=== PATIENT | female | born 1940 | race Caucasian/White ===

== ENCOUNTER → 2019-03-07 13:38 | Outpatient (CLI) | payer MEDICARE, OTHER, SELFPAY ==
--- NOTE | 2019-03-07 | DI.RAD.S_ITS ---
PROCEDURE: XR KNEE LT 3V INDICATIONS: LEFT KNEE PAIN TECHNIQUE: 3 views of the knee were acquired. COMPARISON: None. FINDINGS: Bones: No fractures or dislocations. No suspicious bony lesions. There is a mild to moderate degree of degenerative knee joint space narrowing, best seen at the medial compartment and present to a mild degree at each facet of the patellofemoral joint. Soft tissues: No joint effusion. No suspicious soft tissue calcifications. IMPRESSION: No acute trauma found. Mild degenerative knee joint osteoarthritis as discussed. Dictated by: Koko Montez M.D. on 03/07/2019 at 14:26 Approved by: Koko Montez M.D. on 03/07/2019 at 14:26
== END ==
PROVIDERS: Family Provider Internal Medicine; PCP Internal Medicine; Visit Provider Family Medicine
DX: M17.12 Unilateral primary osteoarthritis, left knee (principal)
CPT/HCPCS: 73562

== ENCOUNTER → 2019-03-30 17:03 | Outpatient (CLI) | payer MEDICARE, OTHER, SELFPAY ==
--- NOTE | 2019-03-30 17:07 | DI.MRI.S_ITS ---
PROCEDURE: MR KNEE LT WO CON INDICATIONS: PAIN IN LEFT KNEE TECHNIQUE: Noncontrast sagittal PD fast spin echo and T2 fast spin echo with fat saturation, sagittal 3-D FLASH with fat saturation; coronal T1 spin echo and PD fast spin echo with fat saturation, and axial PD fast spin echo with fat saturation through the knee. COMPARISON: [facility], MR, KNEE WITHOUT CONTRAST, 06/02/2015, 13:14. FINDINGS: Image quality: Excellent. Menisci: Complex oblique tear involving posterior horn of medial meniscus is seen extending to inferior articulating surface. Peripheral displacement of medial meniscus is also noted bony medial collateral ligament. There is also peripheral displacement of lateral meniscus with suggestion of a complex tear involving anterior horn of lateral meniscus extending to both superior and inferior articulating surfaces. The meniscal root ligaments appear intact. Cruciate ligaments: There is sprain/intrasubstance partial thickness tear involving the proximal to midportion of the anterior cruciate ligament. No full-thickness ACL rupture. Posterior cruciate ligament is intact. Medial structures: The medial collateral ligament appears intact. The posterior oblique ligament, semimembranosus tendon insertions, oblique popliteal ligament, and meniscocapsular junction appear intact. Visualized portions of the pes anserinus tendons appear normal. No abnormal bursal fluid. Lateral structures: The lateral collateral ligament, long and short heads of the biceps femoris tendon appear intact. The popliteus tendon appears normal; the popliteofibular ligament appears intact. The posterosuperior and anteroinferior popliteomeniscal fascicles appear intact. The arcuate and fabellofibular ligaments appear intact, on either side of the lateral inferior geniculate artery. Iliotibial band appears normal. Anterior structures: The quadriceps and patellar tendons appear intact. Patellar alignment is normal. No femoral trochlear dysplasia or ventral trochlear prominence. No edema in the infrapatellar fat pad. Bones and cartilage: There is moderate tricompartmental osteoarthritis with joint space narrowing, subchondral sclerosis and marginal osteophyte formation. Marrow edema involving weight-bearing portion of lateral femoral condyle is seen with no discrete fracture line likely represent bony contusion. 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 Chondromalacia involving medial and lateral femoral tibial compartments also noted. Joint space: There is small to moderate amount of joint effusion. No gross loose body. No Archer's cyst. Normal appearing synovial plicae are incidentally noted. IMPRESSION: 1. Complex tear involving posterior horn of medial meniscus extending to inferior articulating surface. No flexor evolving anterior horn of lateral meniscus extending to both superior and inferior articulating surfaces. 2. Sprain/low to moderate grade intrasubstance partial thickness involving proximal to mid anterior cruciate ligament. No full-thickness ACL rupture. PCL is intact. 3. Bony contusion involving weight-bearing portion of lateral femoral condyle. No definite fracture or dislocation. Moderate tricompartmental osteoarthritis and chondromalacia. Moderate amount of joint effusion, no gross loose body. Dictated by: Harley Aguilar M.D. on 04/02/2019 at 8:54 Approved by: Harley Aguilar M.D. on 04/02/2019 at 9:03
== END ==
PROVIDERS: Family Provider Internal Medicine; PCP Internal Medicine; Visit Provider Family Medicine
DX: M25.562 Pain in left knee (principal); S83.232A Complex tear of medial meniscus, current injury, left knee, initial encounter; S83.282A Other tear of lateral meniscus, current injury, left knee, initial encounter; S83.512A Sprain of anterior cruciate ligament of left knee, initial encounter; M17.12 Unilateral primary osteoarthritis, left knee; M94.262 Chondromalacia, left knee; M25.462 Effusion, left knee
CPT/HCPCS: 73721

== ENCOUNTER → 2019-05-23 09:47 | Outpatient (CLI) | payer MEDICARE, OTHER, SELFPAY | PROVIDERS: Family Provider Internal Medicine; PCP Internal Medicine; Visit Provider Orthopaedic Surgery | DX: S83.282A Other tear of lateral meniscus, current injury, left knee, initial encounter (principal) | CPT/HCPCS: 93005; 93010 ==

== ENCOUNTER → 2019-08-20 10:37 | Outpatient (CLI) | payer MEDICARE, OTHER, SELFPAY ==
--- NOTE | 2019-08-20 | DI.RAD.S_ITS ---
PROCEDURE: XR WRIST RT MIN 3V INDICATIONS: ARTHRITIS OF R WRIST TECHNIQUE: 3 views of the wrist were acquired. COMPARISON: None. FINDINGS: Bones: Osteoarthritic changes along radial aspect of right wrist are seen more prominent at first CMC joint. There is nonvisualization of the trapezium, suggestive of prior surgical resection. No fractures or dislocations. No suspicious bony lesions. Scaphoid view: Scaphoid is grossly intact. Soft tissues: No suspicious soft tissue calcifications. 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 Suggestion of prior resection of trapezium. No acute fracture or dislocation. Dictated by: Harley Aguilar M.D. on 08/20/2019 at 12:33 Approved by: Harley Aguilar M.D. on 08/20/2019 at 12:37
== END ==
PROVIDERS: PCP Internal Medicine; Visit Provider Internal Medicine
DX: M19.031 Primary osteoarthritis, right wrist (principal); M18.11 Unilateral primary osteoarthritis of first carpometacarpal joint, right hand
CPT/HCPCS: 73110

== ENCOUNTER → 2019-10-30 13:25 | Outpatient (CLI) | payer MEDICARE, OTHER, SELFPAY ==
--- NOTE | 2019-10-30 | DI.RAD.S_ITS ---
PROCEDURE: XR CHEST 2V INDICATIONS: Bronchitis TECHNIQUE: 2 views of the chest were acquired. COMPARISON: None. FINDINGS: Surgical changes and devices: None. Lungs and pleura: Lungs are clear. No pleural effusions or pneumothorax. Mediastinum: Mediastinal contours are normal. Heart size is normal. Bones and chest wall: No suspicious bony abnormalities. Soft tissues appear unremarkable. IMPRESSION: No acute cardiopulmonary abnormalities or focal airspace disease. Dictated by: Orestes Almaraz M.D. on 10/30/2019 at 17:10 Approved by: Orestes Almaraz M.D. on 10/30/2019 at 17:10
== END ==
PROVIDERS: PCP Internal Medicine; Visit Provider Internal Medicine
DX: J20.9 Acute bronchitis, unspecified (principal)
CPT/HCPCS: 71046

== ENCOUNTER → 2020-06-26 09:01 | Outpatient (CLI) | payer MEDICARE, OTHER, SELFPAY ==
--- NOTE | 2020-06-26 | DI.RAD.S_ITS ---
PROCEDURE: FL BARIUM SWALLOW INDICATIONS: Gastro-esophageal reflux disease without esophagit COMPARISON: None. FINDINGS: Function: There is mildly decreased esophageal peristalsis. Mild gastroesophageal reflux to the level of the lower 3rd of the esophagus. There is normal transit of a calibrated barium tablet through the esophagus into the stomach. Morphology: Air-contrast images demonstrate normal mucosal morphology. Single contrast views show no esophageal strictures, extrinsic mass effects, or diverticula. Limited images of the stomach demonstrate normal appearance. IMPRESSION: Mild esophageal dysmotility. Spontaneous gastroesophageal reflux Dictated by: Sam Oliveira M.D. on 06/26/2020 at 11:07 Approved by: Sam Oliveira M.D. on 06/26/2020 at 11:09
== END ==
PROVIDERS: PCP Internal Medicine; Referring Provider Internal Medicine; Visit Provider Internal Medicine
DX: K21.9 Gastro-esophageal reflux disease without esophagitis (principal); K22.4 Dyskinesia of esophagus
CPT/HCPCS: 74220

== ENCOUNTER → 2020-07-31 09:57 | Outpatient (CLI) | payer MEDICARE, OTHER, SELFPAY ==
--- NOTE | 2020-07-31 10:30 | DI.MG.S_ITS ---
Patient Name: NICHOLAS TABOR date: 1940 Sex: F Attending Physician: Nicolle Indications: Date: 07/31/2020 10:13 At the request of: LONNIE GALLOWAY Procedure: MM screening mammo BI BILATERAL DIGITAL SCREENING MAMMOGRAM 3D/2D WITH CAD: 07/31/2020 CLINICAL: Routine screening. Comparison is made to exams dated: 09/08/2018 mammogram, 10/25/2016 mammogram, and 06/28/2014 mammogram - [facility]. There are scattered fibroglandular elements in both breasts. Current study was also evaluated with a Computer Aided Detection (CAD) system. There are benign calcifications in both breasts. No significant masses, calcifications, or other findings are seen in either breast. There has been no significant interval change. IMPRESSION: BENIGN There is no mammographic evidence of malignancy. A 1 year screening mammogram is recommended. This exam was interpreted at Station ID: [id number]. NOTE: For mammograms, a report in lay terms will be sent to the patient. Approximately 15% of breast malignancies will not be visualized mammographically. In the management of a palpable breast mass, a negative mammogram must not discourage biopsy of a clinically suspicious lesion. Electronically Signed By: Orestes pérez/girma:07/31/2020 10:52:44 letter sent: Normal Exam ACR BI-RADS Category 2: Benign Finding(s) [id number]
== END ==
PROVIDERS: PCP Internal Medicine; Referring Provider Internal Medicine; Visit Provider Internal Medicine
DX: Z12.31 Encounter for screening mammogram for malignant neoplasm of breast (principal)
CPT/HCPCS: 77063; 77067

== ENCOUNTER → 2020-09-08 13:45 | Outpatient (CLI) | payer MEDICARE, OTHER, SELFPAY | PROVIDERS: PCP Internal Medicine; Referring Provider Internal Medicine; Visit Provider Internal Medicine | DX: M85.852 Other specified disorders of bone density and structure, left thigh (principal); Z78.0 Asymptomatic menopausal state; Z90.722 Acquired absence of ovaries, bilateral; Z82.62 Family history of osteoporosis | CPT/HCPCS: 77080 ==

== ENCOUNTER → 2020-09-16 12:59 | Outpatient (CLI) | payer MEDICARE, OTHER, SELFPAY ==
--- NOTE | 2020-09-16 | DI.RAD.S_ITS ---
PROCEDURE: XR FOOT LT MIN 3V INDICATIONS: Pain in left ankle and joints of left foot TECHNIQUE: 3 views of the foot were acquired. COMPARISON: None. FINDINGS: Bones: No fractures or dislocations. No suspicious bony lesions. Soft tissues: No tibiotalar joint effusion. Achilles tendon appears normal. IMPRESSION: No acute disease found. Please note that the ankle joint area is relatively poorly visualized by the foot plain film technique utilized. If dedicated ankle plain films are desired they should be ordered independently. Dictated by: Koko Montez M.D. on 09/16/2020 at 15:52 Approved by: Koko Montez M.D. on 09/16/2020 at 15:53
== END ==
PROVIDERS: PCP Internal Medicine; Referring Provider Internal Medicine; Visit Provider Internal Medicine
DX: M25.572 Pain in left ankle and joints of left foot (principal)
CPT/HCPCS: 73630

== ENCOUNTER → 2021-12-10 10:16 | Outpatient (CLI) | payer MEDICARE, OTHER, SELFPAY ==
--- NOTE | 2021-12-10 | DI.RAD.S_ITS ---
PROCEDURE: XR CHEST 2V INDICATIONS: Sprain of ribs, subsequent encounter TECHNIQUE: 2 views of the chest were acquired. COMPARISON: [facility], CR, XR CHEST 2V, 10/30/2019, 13:50. FINDINGS: Surgical changes and devices: None. Lungs and pleura: Lungs are clear. No pleural effusions or pneumothorax. Mediastinum: Mediastinal contours are normal. Heart size is normal. Bones and chest wall: No suspicious bony abnormalities. Soft tissues appear unremarkable. IMPRESSION: No evidence acute pulmonary process. Dictated by: Michael France M.D. on 12/10/2021 at 11:07 Approved by: Michael France M.D. on 12/10/2021 at 11:08
== END ==
PROVIDERS: PCP Internal Medicine; Referring Provider Internal Medicine; Visit Provider Internal Medicine
DX: S23.41XD Sprain of ribs, subsequent encounter (principal)
CPT/HCPCS: 71046

== ENCOUNTER → 2022-02-23 13:56 | Outpatient (CLI) | payer MEDICARE, OTHER, SELFPAY ==
--- NOTE | 2022-02-23 | DI.CT.S_ITS ---
PROCEDURE: CT CHEST WO CON INDICATIONS: Left lower rib cage pain, marked with BB. TECHNIQUE: Noncontrast 5 mm thick sections acquired from the pulmonary apices to the posterior costophrenic angles. 1 mm lung window, 5 mm thick coronal and sagittal and 7 mm axial MIP reformats were then acquired. For radiation dose reduction, the following was used: automated exposure control, adjustment of mA and/or kV according to patient size. COMPARISON: None. FINDINGS: Image quality: Excellent. Lungs and pleura: No acute air space opacities. No pleural effusions or pneumothorax. Central and peripheral airways are patent and normal in caliber. Mediastinum: Heart size is normal. No pericardial effusion. No mediastinal adenopathy by size criteria. Thoracic aorta and central pulmonary arteries are normal in size. Esophagus is normal in caliber. No hiatal hernia. Rounded 7 mm calcification associated with the left lobe of the thyroid posteriorly Bones and chest wall: No suspicious bony lesions. No vertebral body compression fractures. No axillary or supraclavicular adenopathy by size criteria. Thyroid gland unremarkable . BB marker corresponds with the left 6th and 7th costochondral junction. No lytic or blastic lesion present. No fracture. Abdomen: Visualized upper abdominal solid organs and bowel loops appear normal in the absence of contrast. IMPRESSION: Patient's area of pain corresponds with the left 6th and 7th costochondral junction. No evidence of fracture or lytic lesion. Approved by: Irving Powers M.D. on 02/23/2022 at 16:47
== END ==
PROVIDERS: PCP Internal Medicine; Referring Provider Internal Medicine; Visit Provider Internal Medicine
DX: S23.41XS Sprain of ribs, sequela (principal)
CPT/HCPCS: 71250

== ENCOUNTER → 2022-12-22 10:27 | Outpatient (CLI) | payer MEDICARE, OTHER, SELFPAY ==
--- NOTE | 2022-12-22 | DI.MRI.S_ITS ---
PROCEDURE: MR LUMBAR SPINE WO/W CON INDICATIONS: Low back pain, unspecified TECHNIQUE: Noncontrast sagittal T1 spin echo and T2 fast echo, sagittal STIR, and T2 fast spin echo through the lumbar spine. In cases with scoliosis, additional coronal T2 fast spin echo may be performed. COMPARISON: [facility], , L-SPINE WITHOUT CONTRAST, 04/14/2016, 8:11. FINDINGS: Image quality: Excellent. Alignment and Curvature: Mild levoconvex scoliotic curvature is noted. Minimal retrolisthesis is seen at T12-L1. Minimal anterolisthesis is seen at the L3-L4 level. Bone Marrow: Marrow is of normal overall signal. No acute vertebral body compression fractures. Mild endplate enhancement can be seen at T11 and T12, which is attributed to reactive enhancement with the underlying bone marrow edema. A Spinal Cord: Conus medullaris terminates at the L1 level. Visualized cord demonstrates normal signal and size. Paraspinous Soft Tissues: No paravertebral masses. T11-T12: Moderate loss of disc height and disc signal can be seen anteriorly. Reactive marrow endplate changes are seen which are hypointense on T1-weighted imaging and hyperintense on T2 weighted imaging, which is most consistent with edema (Modic type I changes). No significant neural foraminal or central canal narrowing can be seen. The degree of endplate edema has progressed compared to 2016. T12-L1: Moderate loss of disc height is seen. Loss of disc signal is seen. Reactive marrow endplate changes are seen which are hypointense on T1-weighted imaging and hyperintense on T2 weighted imaging, which is most consistent with edema (Modic type I changes). Moderate generalized disc bulge is seen. There is moderate right-sided and no left-sided neural foraminal narrowing. No central canal narrowing is seen. The degree of right-sided neural foraminal narrowing is progressed compared to 2016. The degree of endplate edema is also progressed compared to prior. L1-L2: The disc height is well-preserved. Loss of disc signal is seen at this level. No neural foraminal narrowing or central canal narrowing can be seen. L2-L3: The disc height is well-preserved. Loss of disc signal is seen at this level. Mild to moderate disc bulge is seen. There is a superimposed central disc protrusion. Mild to moderate facet hypertrophy is seen. Associated hypertrophy of the ligamentum flavum can be seen. Moderate bilateral neural foraminal narrowing is seen. Moderate central canal narrowing is seen. When comparison is made with the prior images, these findings are similar. L3-L4: Mild loss of disc height is seen. Loss of disc signal is seen. Moderate disc bulge is seen, which is slightly eccentric to the right. At least moderate facet hypertrophy is seen. There is [id number] left-sided and moderate right-sided neural foraminal narrowing seen. Moderate central canal narrowing is seen. When comparison is made with the prior images, these findings are similar. L4-L5: The disc height is well-preserved. Loss of disc signal is seen at this level. Moderate generalized disc bulge is seen. Mild to moderate facet hypertrophy can be seen. Moderate bilateral neural foraminal narrowing is seen, left worse than right. No significant central canal narrowing is seen. There is slight progression at this level compared to 2016. L5-S1: The disc height is well-preserved. Loss of disc signal is seen at this level. No significant disc bulge is seen. Moderate facet joint hypertrophy is seen. There is [id number] left-sided and mild right-sided neural foraminal narrowing. The central canal is widely patent. When comparison is made with the prior images, these findings are similar. IMPRESSION: Multiple levels of lumbar spine degenerative change can be seen, which are mildly progressed at several levels compared to 2016. Dictated by: Shay Whelan M.D. on 12/22/2022 at 11:55 Approved by: Shay Whelan M.D. on 12/22/2022 at 12:00
== END ==
PROVIDERS: PCP Internal Medicine; Referring Provider Internal Medicine; Visit Provider Internal Medicine
DX: M47.816 Spondylosis without myelopathy or radiculopathy, lumbar region (principal); M47.817 Spondylosis without myelopathy or radiculopathy, lumbosacral region; M54.50 Low back pain, unspecified
CPT/HCPCS: 72158; A9579

== ENCOUNTER → 2023-02-07 10:18 | Outpatient (CLI) | payer MEDICARE, OTHER, SELFPAY ==
--- NOTE | 2023-02-07 10:20 | DI.RAD.S_ITS ---
PROCEDURE: XR LUMBAR SPINE MIN 4V INDICATIONS: BACK PAIN TECHNIQUE: 5 views of the lumbar spine were acquired, including bilateral oblique views. COMPARISON: [facility], , L-SPINE 2-3 VIEWS, 01/31/2017, 11:39. [facility], CR, L-SPINE 2-3 VIEWS, 11/03/2015, 9:34. FINDINGS: Bones: 5 nonrib-bearing vertebrae are present. Convex left scoliosis, Cody angle of 17 degrees. No listhesis. Facet arthrosis at L5-S1. Mild disc height loss at all levels. Soft tissues: Overlying bowel gas pattern is normal. No suspicious soft tissue calcifications. Oblique images: No pars defects. IMPRESSION: 1. Mild disc height loss at all levels. 2. Mild facet arthrosis at L5-S1. 3. Convex left scoliosis. 1. Dictated by: Vish Juares M.D. on 02/07/2023 at 10:44 Approved by: Vish Juares M.D. on 02/07/2023 at 10:45
== END ==
PROVIDERS: PCP Internal Medicine; Referring Provider Physical Medicine & Rehabilitation; Visit Provider Physical Medicine & Rehabilitation
DX: M47.817 Spondylosis without myelopathy or radiculopathy, lumbosacral region (principal); M47.816 Spondylosis without myelopathy or radiculopathy, lumbar region; M48.061 Spinal stenosis, lumbar region without neurogenic claudication; M41.9 Scoliosis, unspecified; M54.9 Dorsalgia, unspecified
CPT/HCPCS: 72110; 99214

== ENCOUNTER 2023-03-10 08:06 | Outpatient (CLI) | payer MEDICARE, OTHER, SELFPAY ==
[2023-03-10] VITALS (9 sets, daily range): BP systolic 89–165; BP diastolic 54–76; PULSE 62–76; RESP 13–24; TEMP 36.3; O2SAT 31–100
--- NOTE | 2023-03-10 08:08 | DI.RAD.S_ITS ---
PROCEDURE: PAIN L/SI FACET INJ/BLK 1STL INDICATIONS: SPONDYLOSIS COMPARISON: [facility], CR, XR LUMBAR SPINE MIN 4V, 02/07/2023, 10:17. FINDINGS: Fluoroscopic spot filming was performed to verify placement of spinal needles on the left at the L4-L5 and L5-S1 levels, as labeled on the films. Appropriate location of the needle tips was confirmed by injection of iodinated contrast. IMPRESSION: Intraprocedural examination demonstrating appropriate positions of the needles. Dictated by: Shay Whelan M.D. on 03/10/2023 at 11:05 Approved by: Shay Whelan M.D. on 03/10/2023 at 11:05
[2023-03-10] MEDS: MIDAZOLAM 2 MG/2 ML VIAL IV (09:11)
[2023-03-10] MEDS: IOPAMIDOL 15 ML VIAL 3 ML INJ (09:12)
[2023-03-10] MEDS: BUPIVACAINE 0.5% (PF) 30 ML VIAL INJ (09:12)
[2023-03-10] MEDS: BETAMETHASONE 30 MG/5 ML MDV 12 MG INJ (09:12)
--- NOTE | 2023-03-10 09:25 | P.PCN_ITS ---
Date/Time/Diagnoses Date of procedure: 03/10/23 Time of procedure: 09:25 Pre-procedure diagnosis: 1. FACET ARTHROPATHY, 2. AXIAL LBP, 3. MULTILEVEL DDD Post-procedure diagnosis: same Procedure Notes Procedure: 1. FLUOROSCOPICALLY GUIDED CONTRAST CONTROLLED FACET JOINT INJECTIONS LEFT L4/5, L5/S1 Indications: Cheryl is referred by Dr. Valverde for treatment of Axial LBP Physician: Paul Rao Total Fluoroscopy time (seconds): 5 Total sedation minutes: 9 Complications: none Procedure in detail & Post-procedure care: FINDINGS Multilevel Facet Arthropathy with Clinically significant axial LBP DESCRIPTION OF PROCEDURE Fluoroscopically guided, contrast-controlled left L4/5, L5/S1 facet joint injections. Following review of allergy and review of potential side effects and complications, including, but not necessarily limited to, infection, allergic reaction, local tissue breakdown, stroke, temporary or permanent nerve injury, paralysis, and possible , the patient indicated that the patient understood and agreed to proceed. An informed consent document was signed by the patient, witnessed by a nurse, and placed in the patient's chart. Additionally, other treatment options including medications, modalities, and physical therapy were reviewed with the patient. After review of previous anaesthesic history and IV conscious sedation the patient was deemed safe to proceed with today?s procedure with IV conscious sedation as ASA class II designation. Safety time-out was performed to confirm patient ID, procedure to be performed and site of procedure. IV sedation was accomplished with a combination of 2mg of Versed was administered by the RN after DO order, titrated to patient comfort during the course of the procedure while the patient remained responsive to all verbal commands. In the prone position, following sterile prep and drape of the lumbar region, the posterior aspect of the left L4/5, L5/S1 facet joints were identified fluoroscopically. The skin was anesthetized via a 25-gauge 1.5-inch needle with 1% lidocaine solution into the corresponding facet joints. At this point, a 22- gauge 3.5-inch spinal needle was atraumatically introduced and advanced under fluoroscopic guidance into the corresponding facet joints. Following negative aspiration, injections of approximately 0.2-cc of Isovue 200 confirmed interarticular placement without vascular uptake. Radiological data, including multiple fluoroscopic views of the lumbosacral spine, reveal a spinal needle at the left L4/5, L5/S1 facet joints. Subsequent views show flow of contrast material both superiorly and inferiorly within the joint space without vascular or intrathecal uptake. At this point, a total of 0.5 cc including a mixture of 0.25cc Marcaine and 0.25cc betamethasone was injected without complication into each of the corresponding facet joints. The procedure tolerated the procedure well without signs or symptoms of complications prior to transfer to the recovery area continued monitoring without incident. The patient was then transferred to the recovery area where they were observed for an appropriate period of time after the injection. The patient reported a VAS score of 7 prior to the procedure and a post-procedure VAS of 0. POST OP INSTRUCTIONS The patient was provided a Pain Log to continue to record their response to the target-specific procedure prior to follow-up visit with their referring physician. Additionally, specific post-injection care instructions and a contact number to our office were provided if concerns arise regarding possible complications associated with the procedure are suspected.
== END 2023-03-10 09:48 | disposition home or self-care (01) ==
LOC: RAD 08:08
PROVIDERS: PCP Internal Medicine; Referring Provider Physical Medicine & Rehabilitation; Visit Provider Physical Medicine & Rehabilitation
DX: M47.816 Spondylosis without myelopathy or radiculopathy, lumbar region (principal); M47.817 Spondylosis without myelopathy or radiculopathy, lumbosacral region; M51.36 Other intervertebral disc degeneration, lumbar region; M51.37 Other intervertebral disc degeneration, lumbosacral region
CPT/HCPCS: 64493; 64494; J0702; J2250

== ENCOUNTER 2023-06-30 09:03 | Outpatient (CLI) | payer MEDICARE, OTHER, SELFPAY ==
--- NOTE | 2023-06-30 09:04 | DI.RAD.S_ITS ---
PROCEDURE: PAIN L/SI FACET INJ/BLK 1STL INDICATIONS: SPONDYLOSIS COMPARISON: [facility], , PAIN L/SI FACET INJ/BLK 1STL, 03/10/2023, 9:11. FINDINGS: Fluoroscopic spot filming was performed to verify placement of spinal needles on the left at the L4, L5, and S1 levels, as labeled on the films. Appropriate location of the needle tips was confirmed by injection of iodinated contrast. IMPRESSION: Intraprocedural examination demonstrating appropriate positions of the needles. Dictated by: Shay Whelan M.D. on 06/30/2023 at 12:04 Approved by: Shay Whelan M.D. on 06/30/2023 at 12:04
[2023-06-30 09:26] VITALS: BP 164/74; PULSE 71; RESP 20; TEMP 34.5; O2SAT 100
[2023-06-30 10:10] VITALS: BP 191/86; PULSE 66; RESP 10; O2SAT 100
[2023-06-30] MEDS: MIDAZOLAM 2 MG/2 ML VIAL IV (10:10)
[2023-06-30 10:15] VITALS: BP 130/64; PULSE 69; RESP 14; O2SAT 100
[2023-06-30] MEDS: BUPIVACAINE 0.5% (PF) 10 ML VIAL 5 ML INJ (10:17)
[2023-06-30] MEDS: IOPAMIDOL 15 ML VIAL 3 ML INJ (10:18)
[2023-06-30] MEDS: LIDOCAINE 1% 20 ML INJ (10:18)
[2023-06-30 10:20] VITALS: BP 112/59; PULSE 63; RESP 16; O2SAT 100
[2023-06-30 10:27] VITALS: BP 142/67; PULSE 64; RESP 18; O2SAT 100
[2023-06-30 10:34] VITALS: BP 134/65; PULSE 66; RESP 18; O2SAT 99
--- NOTE | 2023-06-30 11:02 | PM.PROC.IR.1 ---
Date/Time/Diagnoses Date of procedure: 06/30/23 Time of procedure: 11:02 Pre-procedure diagnosis: 1. FACET ARTHROPATHY Post-procedure diagnosis: same Procedure Notes Procedure: 1. Left L4, L5 and S1 MB BLOCKS LA Indications: Melissa is referred by Dr. Valverde for treatment of Left Axial LBP. Physician: Paul Rao Total Fluoroscopy time (seconds): 8 Total sedation minutes: 10 Complications: none Procedure in detail & Post-procedure care: DESCRIPTION OF PROCEDURE Fluoroscopically guided, contrast-controlled left L4, L5 and S1 medial branch blocks with 0.5cc of 0.5% Marcaine. Following review of allergy and review of potential side effects and complications, including, but not necessarily limited to, infection, allergic reaction, local tissue breakdown, nerve injury, paralysis, stroke and possible , the patient indicated that the patient understood and agreed to proceed. An informed consent document was signed by the patient, witnessed by a nurse, and placed in the patient's chart. After review of previous anaesthesic history and IV conscious sedation the patient was deemed safe to proceed with today?s procedure with IV conscious sedation as ASA class II designation. Safety time-out was performed to confirm patient ID, procedure to be performed and site of procedure. IV sedation was accomplished with a combination of 2mg of Versed was administered by the RN after DO order, titrated to patient comfort during the course of the procedure while the patient remained responsive to all verbal commands. In the prone position, following sterile prep and drape of the lumbar region, the left L4, L5 and S1 anatomical location of the medial branch of the dorsal ramus was identified fluoroscopically. Subsequently an anesthetic skin wheal using 1% lidocaine solution was initiated at each of the anatomical spots. Subsequently then a 22-gauge 3.5-inch spinal needle was atraumatically introduced and advanced under fluoroscopic guidance at each of the corresponding sites at the left L4, L5 and S1 MB. After negative aspiration, 0.2cc of Isovue 200 was injected, confirming placement without vascular or intrathecal uptake. Subsequently then 0.5cc of 0.5% Marcaine solution was injected at each of the corresponding sites at the left L4, L5 and S1 medial branch locations. The patient tolerated the procedure well without signs or symptoms of complications. The patient tolerated the procedure well without signs or symptoms of complications prior to transfer to the recovery area continued monitoring without incident. Post-procedure, the patient was monitored initiating provocative activities to measure the amount of relief from block of the facetogenic pain. The patient reported a VAS of 7 prior to the procedure and a post-procedure VAS of 1. It has been a pleasure to assist in the diagnostic and therapeutic care of your patient. POST OP INSTRUCTIONS The patient was provided with a Pain Log to complete over the next several hours and subsequent days prior to the patient's follow up with the ordering physician. If the patient has assistant activities director relief to the solution applied, then they may be a candidate for medial branch rhizotomy. The patient is aware, was provided, once again, with a Pain Log and will follow up with the referring physician for review and clinical correlation.
== END 2023-06-30 10:37 | disposition home or self-care (01) ==
LOC: RAD 09:04
PROVIDERS: PCP Internal Medicine; Referring Provider Physical Medicine & Rehabilitation; Visit Provider Physical Medicine & Rehabilitation
DX: M47.816 Spondylosis without myelopathy or radiculopathy, lumbar region (principal); M47.817 Spondylosis without myelopathy or radiculopathy, lumbosacral region
CPT/HCPCS: 64493; 64494; 99152; J2250

== ENCOUNTER → 2023-08-09 09:24 | Outpatient (CLI) | payer MEDICARE, OTHER, SELFPAY ==
[2023-08-09 10:48] LABS: Add Manual Diff / Slide Review NO; Basophils Absolute Auto 100 /uL (0-100); Basophils Percent Auto 1.1 % (0-2); Eosinophils Absolute Auto 200 /uL (0-450); Eosinophils Percent Auto 3.6 % (2-4); Hematocrit 38.5 % (36-46); Hemoglobin 13.1 g/dL (12.0-16.0); Lymphocytes Absolute Auto 1600 /uL (1100-4500); Lymphocytes Percent Auto 25.7 % (25-40); Mean Corpuscular HGB Conc 34.1 % (30-36); Mean Corpuscular Volume 90.8 fL (80-100); Monocytes Absolute Auto 600 /uL (0-900); Neutrophils Absolute Auto 3600 /uL (1500-7000); Neutrophils Percent Auto 59.6 % (50-75); Platelet Count 292 X10^3/uL (150-400); Red Blood Cell Count 4.24 X10^6/uL (4.0-5.2); Red Cell Distribution Width 13.3 % (11.6-14.8); White Blood Cell Count 6.1 X10^3/uL (4.5-11.0)
[2023-08-09 11:12] LABS: Alanine Aminotransferase 17 IU/L (<35); Albumin 4.2 g/dL (3.5-5.0); Albumin Globulin Ratio 1.6 (1.0-2.8); Alkaline Phosphatase 76 U/L (38-126); Aspartate Aminotransferase 23 IU/L (14-36); Bilirubin Total 0.8 mg/dL (0.2-1.3); Blood Urea Nitrogen 25 mg/dL (7-17); Calcium 10.3 mg/dL (8.4-10.2); Carbon Dioxide 27 mmol/L (22-32); Chloride 104 mmol/L (98-107); Cholesterol 155 mg/dL (140-199); Estimated Glomerular Filt Rate 55 mL/min (>60); Globulin 2.6 g/dL (1.7-4.1); Glucose 93 mg/dL (80-110); HDL Cholesterol 65 mg/dL (40-60); HEMOLYSIS < 15 (0-50); LDL Cholesterol Calculated 65 mg/dL (<100); Magnesium 2.1 mg/dL (1.6-2.3); Potassium 4.3 mmol/L (3.4-5.1); Sodium 139 mmol/L (137-145); Total Protein 6.8 g/dL (6.3-8.2); Triglycerides 123 mg/dL (35-150)
[2023-08-09 11:40] LABS: Thyroid Stimulating Hormone 0.941 uIU/mL (0.47-4.68)
== END ==
PROVIDERS: PCP Internal Medicine; Referring Provider Internal Medicine; Visit Provider Internal Medicine
DX: I10 Essential (primary) hypertension (principal); E55.9 Vitamin D deficiency, unspecified; E78.2 Mixed hyperlipidemia; M79.18 Myalgia, other site; R55 Syncope and collapse
CPT/HCPCS: 36415; 80053; 80061; 82306; 83735; 84443; 85025

== ENCOUNTER 2023-10-11 09:33 | Outpatient (CLI) | payer MEDICARE, OTHER, SELFPAY ==
[2023-10-11] VITALS (8 sets, daily range): BP systolic 104–156; BP diastolic 52–73; PULSE 61–70; RESP 16–20; TEMP 36.2; O2SAT 95–99
--- NOTE | 2023-10-11 10:15 | DI.RAD.S_ITS ---
PROCEDURE: PAIN L/SI FACET INJ/BLK 1STL INDICATIONS: SPONDYLOSIS COMPARISON: [facility], , PAIN L/SI FACET INJ/BLK 1STL, 06/30/2023, 10:12. FINDINGS: Fluoroscopic spot filming was performed to verify placement of spinal needles at the left L4, L5, and S1 level(s), as labeled on the films. Appropriate location(s) of the needle tip(s) was confirmed by injection of iodinated contrast. IMPRESSION: Fluoroscopic support for left lumbosacral facet injection. Please see separate procedure note for further details. Dictated by: Orestes Almaraz M.D. on 10/11/2023 at 18:32 Approved by: Orestes Almaraz M.D. on 10/11/2023 at 18:33
[2023-10-11] MEDS: MIDAZOLAM 2 MG/2 ML VIAL IV (10:55)
[2023-10-11] MEDS: iopamidoL 15 ML VIAL 3 ML INJ (11:01)
[2023-10-11] MEDS: LIDOCAINE 2% INJ SDV 5ML 1 ML INJ (11:06)
--- NOTE | 2023-10-11 11:12 | PM.PROC.IR.1 ---
Date/Time/Diagnoses Date of procedure: 10/11/23 Time of procedure: 11:12 Pre-procedure diagnosis: FACET ARTHROPATHY Post-procedure diagnosis: same Procedure Notes Procedure: 1. Left L4, L5 and S1 MB BLOCKS SA Indications: Cheryl is referred by Dr. Valverde for treatment of left Axial LBP. Physician: Paul Rao Total Fluoroscopy time (seconds): 5 Total sedation minutes: 11 Complications: none Procedure in detail & Post-procedure care: DESCRIPTION OF PROCEDURE Fluoroscopically guided, contrast-controlled left L4, L5 and S1 medial branch blocks with 0.5cc of 2% Lidocaine. Following review of allergy and review of potential side effects and complications, including, but not necessarily limited to, infection, allergic reaction, local tissue breakdown, nerve injury, paralysis, stroke and possible , the patient indicated that the patient understood and agreed to proceed. An informed consent document was signed by the patient, witnessed by a nurse, and placed in the patient's chart. After review of previous anaesthesic history and IV conscious sedation the patient was deemed safe to proceed with today?s procedure with IV conscious sedation as ASA class II designation. Safety time-out was performed to confirm patient ID, procedure to be performed and site of procedure. IV sedation was accomplished with a combination of 2mg of Versed was administered by the RN after DO order, titrated to patient comfort during the course of the procedure while the patient remained responsive to all verbal commands. In the prone position, following sterile prep and drape of the lumbar region, the left L4, L5 and S1 anatomical location of the medial branch of the dorsal ramus was identified fluoroscopically. Subsequently an anesthetic skin wheal using 1% lidocaine solution was initiated at each of the anatomical spots. Subsequently then a 22-gauge 3.5-inch spinal needle was atraumatically introduced and advanced under fluoroscopic guidance at each of the corresponding sites at the left L4, L5 and S1 MB. After negative aspiration, 0.2cc of Isovue 200 was injected, confirming placement without vascular or intrathecal uptake. Subsequently then 0.5cc of 2% Lidocaine solution was injected at each of the corresponding sites at the left L4, L5 and S1 medial branch locations. The patient tolerated the procedure well without signs or symptoms of complications. The patient tolerated the procedure well without signs or symptoms of complications prior to transfer to the recovery area continued monitoring without incident. Post-procedure, the patient was monitored initiating provocative activities to measure the amount of relief from block of the facetogenic pain. The patient reported a VAS of 7 prior to the procedure and a post-procedure VAS of 1. It has been a pleasure to assist in the diagnostic and therapeutic care of your patient. POST OP INSTRUCTIONS The patient was provided with a Pain Log to complete over the next several hours and subsequent days prior to the patient's follow up with the ordering physician. If the patient has slip cover sewer relief to the solution applied, then they may be a candidate for medial branch rhizotomy. The patient is aware, was provided, once again, with a Pain Log and will follow up with the referring physician for review and clinical correlation.
== END 2023-10-11 11:25 | disposition home or self-care (01) ==
PROVIDERS: PCP Internal Medicine; Referring Provider Physical Medicine & Rehabilitation; Visit Provider Physical Medicine & Rehabilitation
DX: M47.816 Spondylosis without myelopathy or radiculopathy, lumbar region (principal); M47.817 Spondylosis without myelopathy or radiculopathy, lumbosacral region
CPT/HCPCS: 64493; 64494; 99152; J2250

== ENCOUNTER 2024-03-15 07:35 | Outpatient (CLI) | payer MEDICARE, OTHER, SELFPAY ==
[2024-03-15] VITALS (13 sets, daily range): BP systolic 94–121; BP diastolic 50–63; PULSE 59–70; RESP 13–32; O2SAT 98–100
--- NOTE | 2024-03-15 08:00 | DI.RAD.S_ITS ---
PROCEDURE: PAIN L/S MED/LAT N RFA INDICATIONS: facet arthropathy COMPARISON: None. FINDINGS: Fluoroscopic spot filming was performed to verify placement of spinal needles at the L4, L5 and S1 levels level(s), as labeled on the films during medial branch rhizotomies. Fluoroscopic time 10 seconds. Two images recorded. IMPRESSION: Intraoperative fluoroscopic images as noted above Dictated by: Román North M.D. on 03/15/2024 at 12:32 Approved by: Román North M.D. on 03/15/2024 at 12:41
[2024-03-15] MEDS: MIDAZOLAM 2 MG/2 ML VIAL 1 MG IV ×2 (08:15→08:33)
--- NOTE | 2024-03-15 08:23 | PC.NURSE ---
IVF infusing per order for blood pressure. See flowsheet. 1 mg of versed given with repeat BP of 94/50. HR SR 60. Dr. Rao aware.
[2024-03-15] MEDS: LIDOCAINE 1% 20 ML 5 ML INJ (08:24)
[2024-03-15] MEDS: BUPIVACAINE 0.5% (PF) 10 ML VIAL 5 ML INJ (08:25)
[2024-03-15] MEDS: SODIUM CHLORIDE 0.9% 500 ML 1000 ML IV (08:41)
--- NOTE | 2024-03-15 08:47 | P.PCN_ITS ---
Date/Time/Diagnoses Date of procedure: 03/15/24 Time of procedure: 08:47 Pre-procedure diagnosis: 1. RECALCITRANT FACET ARTHROPATHY Post-procedure diagnosis: same Procedure Notes Procedure: 1. LEFT L4 AND L5 MEDIAL BRANCH RADIOFREQUENCY NEUROTOMY AND LEFT S1 DORSAL RAMUS RADIOFREQUENCY NEUROTOMY, Indications: Cheryl is referred by Dr. Valverde for treatment of facet arthropathy. Physician: Paul Rao Total Fluoroscopy time (seconds): 10 Total sedation minutes: 26 Complications: none Procedure in detail & Post-procedure care: DESCRIPTION OF PROCEDURE Left L4 and L5 medial branch radiofrequency neurotomy and left S1 dorsal ramus branch radiofrequency neurotomy under fluoroscopy with conscious sedation. The patient is well known to this clinic having undergone previous facet injections with good but temporary relief. The patient has experienced appropriate, concordant relief with previous facet and median branch blocks but the patient's pain has been recalcitrant to further conservative measures. Therefore, based upon the patient's relief and persistent symptoms, the patient is considered an appropriate candidate for facet rhizotomy. All of the patient's questions regarding the risks versus benefits of the procedure, including, but not limited to, bleeding, infection, temporary as well as lasting nerve injury, paralysis, stroke, and , as well treatment alternatives were answered to satisfaction. After obtaining informed consent, denial of pertinent drug allergies, as well as being made aware of the potential risks of bleeding, infection, spinal cord trauma, paralysis, temporary and permanent nerve damage, seizure, stroke, and possible , the patient was brought to the fluoroscopy suite and positioned prone on the fluoroscopy table. The lumbar region was prepped with Betadine and covered with a fenestrated drape in the usual sterile fashion. Appropriate monitors applied including pulse oximeter, pulse, and blood pressure for regular monitoring throughout the procedure. IV sedation was accomplished with a combination of 2mg of Versed titrated to patient comfort during the course of the procedure while the patient remained responsive to all verbal commands. After local infiltration using 1% lidocaine, under fluoroscopic guidance, a 10- cm RF insulated needle with a 10-mm active tip was positioned parallel to the junction of the left sacral ala and the superior articulating process where the S1 dorsal ramus resides. Needle placement was confirmed with sensory stimulation at 50 Hz, with motor stimulation of .5v on the left which produced local stimulation without radicular component. The stimulation was then increased to 2v with, once again, only local multifidus stimulation without radicular component. This was then followed by two discreet lesions performed at 80 degrees Celsius for 90 seconds each. The needle was then removed and the identical procedure was performed along the length of the left L5 medial branch with motor stimulation at .7v on the left. The identical procedure was once again performed along the length of the left L4 medial branch with motor stimulation of .5v on the left. The patient tolerated the procedure well without signs or symptoms of complications prior to transfer to the recovery area continued monitoring without incident. The patient was then transferred to the recovery area where they were observed for an appropriate period of time after the injection. The patient was then transferred to the recovery area where they were observed for an appropriate period of time after the injection. The patient reported a VAS score of 9 prior to the procedure and a post- procedure VAS of 0. POST OP INSTRUCTIONS The patient was provided a Pain Log to continue to record the patient's response to the target-specific procedure prior to the patient's follow-up visit with the referring physician. Additionally, specific post-injection care instructions and a contact number to our office were provided if concerns arise regarding possible complications associated with the procedure are suspected.
--- NOTE | 2024-03-15 08:54 | PC.NURSE ---
IV fluids bolus completed
== END 2024-03-15 09:13 | disposition home or self-care (01) ==
LOC: RAD 07:35
PROVIDERS: PCP Internal Medicine; Referring Provider Physical Medicine & Rehabilitation; Visit Provider Physical Medicine & Rehabilitation
DX: M47.816 Spondylosis without myelopathy or radiculopathy, lumbar region (principal); M47.817 Spondylosis without myelopathy or radiculopathy, lumbosacral region
CPT/HCPCS: 64635; 64636; 99152; 99153; J2250

== ENCOUNTER → 2024-12-18 08:50 | Outpatient (CLI) | payer MEDICARE, OTHER, SELFPAY ==
--- NOTE | 2024-12-18 08:54 | DI.RAD.S_ITS ---
PROCEDURE: XR KNEE RT 3V INDICATIONS: KNEE PAIN TECHNIQUE: 3 views of the knee were acquired. COMPARISON: [facility], CR, XR KNEE LT 3V, 03/07/2019, 13:46. FINDINGS: Bones: There are no osseous abnormalities. Joints: Severe patellofemoral and moderate medial tibial femoral degeneration appreciated. Soft tissues: Normal IMPRESSION: Degeneration-progressing since 03/07/2019 Dictated by: Christian Valverde M.D. on 12/19/2024 at 10:46 Approved by: Christian Valverde M.D. on 12/19/2024 at 10:47
== END ==
PROVIDERS: PCP Internal Medicine; Referring Provider Internal Medicine; Visit Provider Internal Medicine
DX: S83.91XA Sprain of unspecified site of right knee, initial encounter (principal)
CPT/HCPCS: 73562

== ENCOUNTER → 2024-12-27 08:47 | Outpatient (CLI) | payer MEDICARE, OTHER, SELFPAY ==
--- NOTE | 2024-12-27 | DI.MRI.S_ITS ---
PROCEDURE: MR KNEE RT WO CON INDICATIONS: Pain in right knee TECHNIQUE: Noncontrast sagittal PD fast spin echo and T2 fast spin echo with fat saturation, sagittal 3-D FLASH with fat saturation; coronal T1 spin echo and PD fast spin echo with fat saturation, and axial PD fast spin echo with fat saturation through the knee. COMPARISON: [facility], MR, KNEE WITHOUT CONTRAST, 06/02/2015, 13:14. FINDINGS: Image quality: Excellent. Menisci: Peripheral displacement of medial meniscus bowing medial collateral ligament. There is vertical tear involving body of medial meniscus extending to both superior and inferior articulating surfaces. There is also horizontal oblique tear involving posterior horn of medial meniscus extending to inferior articulating surface. There is also suggestion of oblique tear involving inner periphery of posterior horn lateral meniscus near its posterior meniscal root insertion extending to inferior articulating surface. Cruciate ligaments: The anterior cruciate ligament is mildly thickened with intrasubstance T2 hyperintense signal. The posterior cruciate ligament is intact. Medial structures: The medial collateral ligament appears thickened with intrasubstance T2 hyperintense signal at its femoral insertion. Visualized portions of the pes anserinus tendons appear normal. No abnormal bursal fluid. Lateral structures: The lateral collateral ligament, long and short heads of the biceps femoris tendon appear intact. The popliteus tendon appears normal Iliotibial band appears normal. Anterior structures: The quadriceps and patellar tendons appear intact. Patellar alignment is normal. Bones and cartilage: No bone marrow contusions or fractures. Moderate osteoarthritis and chondromalacia in medial femoral tibial compartment is seen. Low-grade chondromalacia in lateral femoral tibial compartment and patellofemoral compartment is also seen. Joint space: There is small knee joint fluid. No Archer's cyst. Normal appearing synovial plicae are incidentally noted. IMPRESSION: 1. Peripheral displacement of medial meniscus bowing medial collateral ligament. Vertical tear involving body of medial meniscus extending to both superior and inferior articulating surfaces. Horizontal oblique tear involving posterior horn of medial meniscus extending to inferior articulating surface. 2. Subtle oblique tear involving free edge of posterior horn lateral meniscus near its posterior lateral meniscal root insertion. 3. Degenerative changes are seen in ACL. No ACL rupture. The PCL is intact. 4. Low-grade partial-thickness tear involving proximal MCL near its femoral insertion. 5. Xsod-up-ouhodjse tricompartmental osteoarthritis and chondromalacia most notably in medial femoral tibial compartment. No fracture or dislocation. Small joint effusion, no loose bodies. Dictated by: Harley Aguilar M.D. on 12/28/2024 at 10:28 Approved by: Harley Aguilar M.D. on 12/28/2024 at 10:37
== END ==
PROVIDERS: PCP Internal Medicine; Referring Provider Internal Medicine; Visit Provider Internal Medicine
DX: S83.241A Other tear of medial meniscus, current injury, right knee, initial encounter (principal); M17.11 Unilateral primary osteoarthritis, right knee; M94.261 Chondromalacia, right knee; M25.461 Effusion, right knee; M25.561 Pain in right knee
CPT/HCPCS: 73721

== ENCOUNTER → 2025-02-27 15:15 | Outpatient (CLI) | payer MEDICARE, OTHER, SELFPAY ==
--- NOTE | 2025-02-27 15:19 | DI.MRI.S_ITS ---
PROCEDURE: MR KNEE RT WO CON INDICATIONS: R/O RT KNEE MMT TECHNIQUE: Noncontrast sagittal PD fast spin echo and T2 fast spin echo with fat saturation, sagittal 3-D FLASH with fat saturation; coronal T1 spin echo and PD fast spin echo with fat saturation, and axial PD fast spin echo with fat saturation through the knee. COMPARISON: [facility], MR, MR KNEE RT WO CON, 12/27/2024, 8:55. FINDINGS: Image quality: Excellent. Menisci: Peripheral displacement of medial meniscus bowing medial collateral ligament is seen. Complex tear involving body and posterior horn of medial meniscus extending to both superior and inferior articulating surfaces. There is no lateral meniscal tear. Cruciate ligaments: Myxoid degenerative changes and low-grade intrasubstance partial-thickness tear involving anterior cruciate ligament. The PCL is intact. Medial structures: The medial collateral ligament appears mildly thickened with surrounding edema. Visualized portions of the pes anserinus tendons appear normal. No abnormal bursal fluid. Lateral structures: The lateral collateral ligament, long and short heads of the biceps femoris tendon appear intact. Popliteus tendinosis is seen extending to musculotendinous junction. Iliotibial band appears normal. Anterior structures: The quadriceps and patellar tendons appear intact. Patellar alignment is normal. Bones and cartilage: No acute fracture or dislocation. No marrow edema. Moderate tricompartmental osteoarthritis and chondromalacia is seen more notably in medial femoral tibial compartment and lateral portion of patellofemoral compartment worsened since previous study. Joint space: There is small knee joint fluid. No Archer's cyst. Normal appearing synovial plicae are incidentally noted. IMPRESSION: 1. Complex oblique tear involving body and posterior horn of medial meniscus extending to both superior and inferior articulating surfaces progressed compared to previous study. Peripheral displacement of medial meniscus bowing medial collateral ligament. The lateral meniscus is intact. 2. Myxoid degenerative changes and low-grade intrasubstance partial-thickness tear involving ACL. No ACL rupture. The PCL is intact. 3. Low-grade MCL sprain. Distal popliteus tendinosis extending to musculotendinous junction. 4. Moderate tricompartmental osteoarthritis and chondromalacia more notably in medial femoral tibial compartment and lateral portion of patellofemoral compartment significantly worsened since previous study. No acute fracture or dislocation. Dictated by: Harley Aguilar M.D. on 02/27/2025 at 17:19 Approved by: Harley Aguilar M.D. on 02/27/2025 at 17:24
== END ==
PROVIDERS: PCP Internal Medicine; Referring Provider Orthopaedic Surgery; Visit Provider Orthopaedic Surgery
DX: S83.231A Complex tear of medial meniscus, current injury, right knee, initial encounter (principal); S83.511A Sprain of anterior cruciate ligament of right knee, initial encounter; S83.411A Sprain of medial collateral ligament of right knee, initial encounter; M17.11 Unilateral primary osteoarthritis, right knee; M22.41 Chondromalacia patellae, right knee
CPT/HCPCS: 73721

== ENCOUNTER → 2025-09-04 09:04 | Outpatient (CLI) | payer MEDICARE, OTHER, SELFPAY ==
--- NOTE | 2025-09-04 09:06 | DI.RAD.S_ITS ---
PROCEDURE: XR LUMBAR SPINE MIN 4V INDICATIONS: RIGHT HIP PAIN/ BACK PAIN TECHNIQUE: 5 views of the lumbar spine were acquired, including bilateral oblique views. COMPARISON: [facility], [facility], XR LUMBAR SPINE MIN 4V, 02/07/2023, 10:17. [facility], [facility], L-SPINE 2-3 VIEWS, 01/31/2017, 11:39. FINDINGS: Bones: Multilevel degenerative disc disease and facet arthropathy with levoscoliosis of the thoracolumbar spine similar to prior examination. Progressive intervertebral disc degeneration since prior x-ray in particular at the T12-L1 level. Osseous demineralization. No acute fracture or height loss. Severe right hip osteoarthritis. Soft tissues: Overlying bowel gas pattern is normal. No suspicious soft tissue calcifications. Oblique images: No pars defects. IMPRESSION: Progressive spondylosis. Dictated by: Trevor Chiu M.D. on 09/04/2025 at 9:55 Approved by: Trevor Chiu M.D. on 09/04/2025 at 9:57
== END ==
PROVIDERS: PCP Internal Medicine; Referring Provider Physical Medicine & Rehabilitation; Visit Provider Physical Medicine & Rehabilitation
DX: M47.816 Spondylosis without myelopathy or radiculopathy, lumbar region (principal); M47.815 Spondylosis without myelopathy or radiculopathy, thoracolumbar region; M16.11 Unilateral primary osteoarthritis, right hip; M51.35 Other intervertebral disc degeneration, thoracolumbar region; M51.369 Other intervertebral disc degeneration, lumbar region without mention of lumbar back pain or lower extremity pain; R26.81 Unsteadiness on feet; M48.061 Spinal stenosis, lumbar region without neurogenic claudication
CPT/HCPCS: 72110; 99214